=== PATIENT | male | born 1990 | race Caucasian/White ===

== ENCOUNTER → 2021-10-23 | Outpatient (CLI) | payer OTHER ==
--- NOTE | 2021-10-24 14:31 | RAD ---
XR SHOULDER_RIGHT 2+ VIEWS 10/24/2021 Reason: WOKE UP THIS MORNING WITH PAIN, NKI Comparison: None Technique: 3 views right shoulder Findings: No acute fracture or dislocation. Bone mineralization is within normal limits. Joint spaces are well- maintained. Surrounding soft tissues are unremarkable. Impression: No acute osseous abnormality. Electronically signed by: Scooter Sotomayor MD (10/24/2021 2:29 PM) [id number]
== END ==
LOC: RAD 11:21
PROVIDERS: ATTEND Nurse Practitioner Family
DX: M25.511 Pain in right shoulder (principal)
CPT/HCPCS: 73030